=== PATIENT | male | born 1985 | race Caucasian/White ===

== ENCOUNTER 2021-10-20 17:26 | Emergency (ER) | payer OTHER ==
[2021-10-20] MEDS ORDERED: HYDROmorphone 0.5 MG/0.5 ML SYRINGE IVP STA ×3 (18:01→20:35)
[2021-10-20 18:44] LABS: Basophils # (A) 0.1 k/uL (0-0.2); Basophils % (A) 0 %; Eosinophils # (A) 0.1 k/uL (0-0.7); Eosinophils % (A) 1 %; HCT 40.7 % (39.0-53.0); HGB 13.4 gm/dL (13.0-17.5); Lymphocytes % (A) 19 %; MCH 35.7 pg (25.0-35.0); MCHC 32.9 g/dL (31.0-37.0); MCV 108.3 fL (80.0-100.0); Macrocytosis Moderate; Mean Platelet Volume 7.3; Monocytes # (A) 0.6 k/uL (0-1.0); Monocytes % (A) 6 %; Neutrophils # (A) 7.3 k/uL (1.3-7.7); Neutrophils % (A) 72 %; Platelet Count 364 k/uL (150-450); RBC 3.76 m/uL (4.30-5.90); RDW 13.3 % (11.5-15.5); WBC 10.3 k/uL (3.8-10.6)
[2021-10-20 18:53] LABS: ALT 14 U/L (4-49); AST 29 U/L (17-59); African American GFR (CKD) >90 (>60 ml/min/1.73 sqM); Albumin 3.8 g/dL (3.5-5.0); Alkaline Phosphatase 65 U/L (38-126); Anion Gap 9 mmol/L; Blood Urea Nitrogen 5 mg/dL (9-20); Calcium 9.2 mg/dL (8.4-10.2); Carbon Dioxide 21 mmol/L (22-30); Chloride 104 mmol/L (98-107); Glucose 105 mg/dL (74-99); Non-African American GFR(CKD) >90 (>60 ml/min/1.73 sqM); Sodium 134 mmol/L (137-145); Total Bilirubin 0.6 mg/dL (0.2-1.3); Total Protein 6.7 g/dL (6.3-8.2)
[2021-10-20 18:54] LABS: Potassium 4.3 mmol/L (3.5-5.1)
[2021-10-20 18:58] LABS: INR 0.9 (<1.2); Partial Thromboplastin Time 22.8 sec (22.0-30.0); Prothrombin Time 9.9 sec (9.0-12.0)
--- NOTE | 2021-10-20 19:27 | ED ---
General Adult HPI - General Chief complaint: Fall Stated complaint: Fell from roof Time Seen by Provider: 10/20/21 17:30 Source: patient, RN notes reviewed, old records reviewed Mode of arrival: ambulatory Limitations: no limitations - History of Present Illness Initial comments: This is a 36-year-old male who presents emergency Department complaining of falling off a roof about 8 feet high onto a table. Patient states he struck the right side of his lower chest and he continues to have pain in the right upper quadrant and right lower chest. Patient states it hurts take a deep breath. Patient denies any head or neck pain. Patient denies any back pain. Patient denies any lower abdominal pain. Patient denies any extremity pain. - Related Data Previous Rx's Medication Instructions Recorded Ketorolac [Toradol] 10 mg PO Q6HR #15 tab 10/20/21 Allergies Allergy/AdvReac Type Severity Reaction Status Date / Time No Known Allergies Allergy Verified 10/20/21 17:34 Review of Systems ROS Statement: Those systems with pertinent positive or pertinent negative responses have been documented in the HPI. ROS Other: All systems not noted in ROS Statement are negative. Past Medical History Past Medical History: No Reported History History of Any Multi-Drug Resistant Organisms: None Reported Past Surgical History: No Surgical Hx Reported Past Psychological History: No Psychological Hx Reported Smoking Status: Current every day smoker Past Alcohol Use History: None Reported Past Drug Use History: None Reported General Exam - General Exam Comments Initial Comments: GENERAL: Patient is well-developed and well-nourished. Patient is nontoxic and well- hydrated and is in moderate distress. ENT: Neck is soft and supple. No significant lymphadenopathy is noted. Oropharynx is clear. Moist mucous membranes. Neck has full range of motion without eliciting any pain. EYES: The sclera were anicteric and conjunctiva were pink and moist. Extraocular movements were intact and pupils were equal round and reactive to light. Eyelid s were unremarkable. PULMONARY: Unlabored respirations. Good breath sounds bilaterally. No audible rales rhonchi or wheezing was noted. CARDIOVASCULAR: There is a regular rate and rhythm without any murmurs gallops or rubs. She has tenderness along the right lower rib cage. No crepitus was found. ABDOMEN: Patient has right upper quadrant tenderness SKIN: Skin is clear with no lesions or rashes and otherwise unremarkable. NEUROLOGIC: Patient is alert and oriented x3. Cranial nerves II through XII are grossly intact. Motor and sensory are also intact. Normal speech, volume and content. Symmetrical smile. MUSCULOSKELETAL: Normal extremities with adequate strength and full range of motion. LYMPHATICS: No significant lymphadenopathy is noted PSYCHIATRIC: Normal psychiatric evaluation. Limitations: no limitations Course Vital Signs 10/20/21 10/20/21 17:30 19:00 Temperature 98.2 F Pulse Rate 122 H 98 Respiratory 20 18 Rate Blood Pressure 125/70 137/80 O2 Sat by Pulse 97 99 Oximetry Medical Decision Making - Medical Decision Making CT of the chest abdomen pelvis shows no acute normalities. Patient was requesting to have worked and he got a note for that. - Lab Data Result diagrams: 10/20/21 18:23 10/20/21 18:23 Lab Results 10/20/21 10/20/21 10/20/21 Range/Units 18:23 18:23 18:23 WBC 10.3 (3.8-10.6) k/uL RBC 3.76 L (4.30-5.90) m/uL Hgb 13.4 (13.0-17.5) gm/dL Hct 40.7 (39.0-53.0) % MCV 108.3 H (80.0-100.0) fL MCH 35.7 H (25.0-35.0) pg MCHC 32.9 (31.0-37.0) g/dL RDW 13.3 (11.5-15.5) % Plt Count 364 (150-450) k/uL MPV 7.3 Neutrophils % 72 % Lymphocytes % 19 % Monocytes % 6 % Eosinophils % 1 % Basophils % 0 % Neutrophils # 7.3 (1.3-7.7) k/uL Lymphocytes # 2.0 (1.0-4.8) k/uL Monocytes # 0.6 (0-1.0) k/uL Eosinophils # 0.1 (0-0.7) k/uL Basophils # 0.1 (0-0.2) k/uL Macrocytosis Moderate PT 9.9 (9.0-12.0) sec INR 0.9 (<1.2) APTT 22.8 (22.0-30.0) sec Sodium 134 L (137-145) mmol/L Potassium 4.3 (3.5-5.1) mmol/L Chloride 104 (98-107) mmol/L Carbon Dioxide 21 L (22-30) mmol/L Anion Gap 9 mmol/L BUN 5 L (9-20) mg/dL Creatinine 0.77 (0.66-1.25) mg/dL Est GFR (CKD-EPI)AfAm >90 (>60 ml/min/1.73 sqM) Est GFR (CKD-EPI)NonAf >90 (>60 ml/min/1.73 sqM) Glucose 105 H (74-99) mg/dL Calcium 9.2 (8.4-10.2) mg/dL Total Bilirubin 0.6 (0.2-1.3) mg/dL AST 29 (17-59) U/L ALT 14 (4-49) U/L Alkaline Phosphatase 65 (38-126) U/L Total Protein 6.7 (6.3-8.2) g/dL Albumin 3.8 (3.5-5.0) g/dL Disposition Clinical Impression: Fall, Contusion of chest Disposition: HOME SELF-CARE Condition: Good Instructions (If sedation given, give patient instructions): Contusion in Adults (ED), Fall Prevention (ED) Prescriptions: Ketorolac [Toradol] 10 mg PO Q6HR #15 tab Is patient prescribed a controlled substance at d/c from ED?: No Referrals: None,Stated [Primary Care Provider] - 1-2 days Time of Disposition: 20:34
--- NOTE | 2021-10-20 19:53 | CT ---
EXAMINATION TYPE: CT ChestAbdPelvis w con CT DLP: 967.1 mGycm, Automated exposure control for dose reduction was used. DATE OF EXAM: 10/20/2021 6:55 PM COMPARISON: None CLINICAL INDICATION:Male, 36 years old with history of Trauma, Fall from roof, approximately 7-8 ft, landing on feet, but also injured right ribs. Technique: Multiple axial images of the chest, abdomen, and pelvis were obtained following the intrav enous administration of 100 mL Isovue-300. Two-dimensional coronal and sagittal reconstructions were obtained. Findings: CHEST: LUNGS/ PLEURA: There is cyst within the left lower lung septation. AIRWAY: Patent and unremarkable.. HEART: Size within normal limits. . MEDIASTINUM: No gross evidence of adenopathy. VASCULATURE: No aortic aneurysm. MUSCULOSKELETAL: No acute osseous abnormalities SOFT TISSUES/LYMPH NODES: Unremarkable. LOWER NECK: No significant findings. ABDOMEN: ABDOMEN LIVER: Unremarkable GALLBLADDER AND BILE DUCTS: Unremarkable. PANCREAS: Unremarkable. SPLEEN: Unremarkable. ADRENAL GLANDS: Unremarkable. KIDNEYS AND URETERS: Delayed-phase contrast images demonstrate sharp bilateral calyces. There is con trast within the bilateral ureters and partially fills the urinary bladder without evidence of extrav asation. PELVIS BLADDER: Unremarkable REPRODUCTIVE: Unremarkable. ABDOMEN & PELVIS STOMACH AND BOWEL: No evidence of bowel obstruction. PERITONEUM: No evidence of pneumoperitoneum or free fluid. VASCULATURE: Late arterial phase imaging demonstrates no evidence for acute arterial contrast extrava sation and no pooling of contrast is seen on delayed phase imaging. MUSCULOSKELETAL: No acute osseous abnormalities, multiple injuries of the left ribs 10 and 11 posteri kash. Sclerotic focus of the lateral portion of left rib 7 suggesting bony island. There are calcific ations of the interspinous ligament in the mid back. LYMPH NODES: No gross evidence for lymphadenopathy. SOFT TISSUE/ABDOMINAL WALL: Unremarkable IMPRESSION: 1. No evidence of acute intra-abdominal or intrathoracic process. 2. Remote-appearing left ribs 10 and 11 fractures posteriorly.
[2021-10-20] MEDS ORDERED: ACET/COD 300 MG/30 MG STARTER PACK 6 TAB BTL PO STA (20:35)
[2021-10-20 20:54] VITALS: BP 119/74; PULSE 74; RESP 15; TEMP 98.4
== END 2021-10-20 20:52 | disposition home or self-care (01) ==
LOC: EC 17:26
DX: S20.211A Contusion of right front wall of thorax, initial encounter (principal); F17.200 Nicotine dependence, unspecified, uncomplicated; W13.2XXA Fall from, out of or through roof, initial encounter
CPT/HCPCS: 36415; 80053; 85025; 85610; 85730; 71260; 74177; 99284; 96374; 96376 ×2; J1170; Q9967

== ENCOUNTER 2024-07-02 13:42 | Emergency (ER) | payer OTHER ==
[2024-07-02 13:50] VITALS: RESP 18
[2024-07-02] MEDS: DIPH,PERTUS(ACELL)TETVAC-LF 0.5 ML VIAL IM ONE (14:37)
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
[2024-07-02] MEDS: HYDROmorphone 0.5 MG/0.5 ML SYRINGE IM STA (14:49)
--- NOTE | 2024-07-02 15:10 | XR ---
EXAMINATION TYPE: XR hand complete RT DATE OF EXAM: 07/02/2024 COMPARISON: NONE HISTORY: 39-year-old male second and third MCP joint swelling after injury and laceration TECHNIQUE: 3 views FINDINGS: Mildly comminuted oblique fractures along the proximal third shaft of the second proximal p halanx. While there is no significant displacement, there is mild dorsal angulation present on the la teral view. No additional acute fracture, subluxation, or dislocation is seen. Old, healed, angulated fracture deformity fifth metacarpal neck. IMPRESSION: 1. Oblique fractures second proximal phalanx with mild dorsal angulation. 2. Old boxer's fracture deformity. [facility], , 07/02/2024 3:08 PM
[2024-07-02] MEDS: LIDOCAINE 1% INJ 10MG/ML (20 ML MDV) SQ ONE (15:24)
[2024-07-02] MEDS: ACET/COD 300 MG/30 MG STARTER PACK 6 TAB BTL PO STA (16:08)
[2024-07-02 16:11] VITALS: BP 130/70; PULSE 80; TEMP 98.1
== END 2024-07-02 16:11 | disposition home or self-care (01) ==
LOC: EC 13:42
CPT/HCPCS: 90471; 90715; 96372; 99283